=== PATIENT | female | born 1990 | race Caucasian/White ===

== ENCOUNTER 2016-11-26 13:26 | Emergency (ER) | payer OTHER ==
[~2016-11-26] VITALS: Ht 172.7 cm; Wt 70.8 kg
[2016-11-26 13:38] VITALS: BP 114/69
[2016-11-26] MEDS ORDERED: ALPR1TAB2 PO (13:45)
[2016-11-26] MEDS ORDERED: RISP0.251 PO (13:45)
--- NOTE | 2016-11-26 13:59 | NUR ---
PT CAME TO ER DUE TO MED REFILL FOR VICODIN, PT STATES SHE IS HAVING GALL BLADDER SURGERY.PT STATES SHE HAD ABDOMINAL PAIN;HX OF GALLSTONE;AAOX4;NO ACUTE DISTRESS NOTED AT THIS TIME;HOB ELEVATED;NEEDS ATTENDED;SAFETY PRECAUTION INSTITUTED; MADE AWARE OF PT'S CONDITION;
--- NOTE | 2016-11-26 14:00 | NUR ---
ER AT BEDSIDE
--- NOTE | 2016-11-26 14:14 | NUR ---
Patient discharged with v/s stable. Written and verbal after care instructions given and explained. Patient alert, oriented and verbalized understanding of instructions. Ambulatory with steady gait. All questions addressed prior to discharge. ID band removed. Patient advised to follow up with PMD. Rx of NORCO AND ZOFRAN given. Patient educated on indication of medication including possible reaction and side effects. Opportunity to ask questions provided and answered.ADVISED PT TO AVOID GREASY FOODS AND PT AGREED TO IT.
[2016-11-26 14:15] VITALS: BP 104/70
== END 2016-11-26 14:14 | disposition home or self-care (01) ==
LOC: MED 13:26
DX: Z76.0 Encounter for issue of repeat prescription (principal); K80.20 Calculus of gallbladder without cholecystitis without obstruction
CPT/HCPCS: 99283

== ENCOUNTER 2016-12-22 16:26 | Emergency (ER) | payer OTHER ==
[~2016-12-22] VITALS: Ht 177.8 cm; Wt 76.2 kg
[~2016-12-22 16:26] MED LIST: RISPERDAL0.25 MG PO; XANAX1 MG PO
[2016-12-22 16:41] VITALS: BP 118/65
[2017-01-11] MEDS ORDERED: NORCO 5/325 MG1 TAB PO (14:07)
[2017-01-11] MEDS ORDERED: ZOLPIDEM TARTRAT5 M1 PO (14:07)
== END 2016-12-22 19:40 | disposition left against medical advice (07) ==
LOC: MED 16:26
DX: R10.11 Right upper quadrant pain (principal); Z53.21 Procedure and treatment not carried out due to patient leaving prior to being seen by health care provider

== ENCOUNTER 2017-01-10 18:20 | Inpatient (IN) | payer OTHER ==
[~2017-01-10] VITALS: Ht 180.3 cm; Wt 77.1 kg
[~2017-01-10 18:20] MED LIST changes: +ALPR1TAB2 PO; +RISP0.251 PO; -RISPERDAL0.25 MG PO; -XANAX1 MG PO
[2017-01-10 18:37] VITALS: BP 113/73
[2017-01-10 19:53] LABS: BASOPHILS # (AUTO) 0.2 K/uL (0.00-0.22); BASOPHILS % (AUTO) 3.2 % (0.0-2.0); EOSINOPHILS # (AUTO) 0.1 K/uL (0-0.4); EOSINOPHILS % (AUTO) 1.4 % (0.0-4.0); HEMATOCRIT 38.1 % (36-48); HEMOGLOBIN 12.9 g/dL (12.0-16.0); LYMPHOCYTES # (AUTO) 2.5 K/uL (2.5-16.5); LYMPHOCYTES % (AUTO) 47.7 % (20.5-51.1); MEAN CORPUSCULAR HEMOGLOBIN 29 pg (27-31); MEAN CORPUSCULAR HGB CONC 34 g/dL (33-37); MEAN CORPUSCULAR VOLUME 86 fL (80-94); MONOCYTES # (AUTO) 0.5 K/uL (0.8-1.0); NEUTROPHILS % (AUTO) 38.7 % (42.2-75.2); PLATELET COUNT (AUTO) 236 K/uL (140-450); RED BLOOD CELL COUNT(AUTO) 4.43 MIL/uL (4.20-5.40); RED CELL DISTRIBUTION WIDTH 13.4 % (11.6-13.7); WHITE BLOOD COUNT (AUTO) 5.3 K/uL (4.8-10.8)
[2017-01-10 20:01] LABS: ANION GAP 9.4 (8-16); CALCIUM 9.3 mg/dL (8.5-10.1); CARBON DIOXIDE 33.3 mmol/L (21-32); CREATININE 0.8 mg/dL (0.6-1.3); POTASSIUM 4.7 mmol/L (3.5-5.1)
[2017-01-10 20:08] LABS: ALBUMIN 3.1 g/dL (3.4-5.0); TOTAL BILIRUBIN 0.3 mg/dL (0.0-1.0); TOTAL PROTEIN, SERUM 7.6 g/dL (6.4-8.2)
--- NOTE | 2017-01-10 20:38 | NUR ---
PT TAKEN TO BED 8
--- NOTE | 2017-01-10 20:40 | NUR ---
PT PRESENTS TO ER W/C/O ABDOMINAL PAIN X3 DAYS. HX GALLSTONES. SKIN IS PINK/WARM/DRY; AAOX4 WITH EVEN AND STEADY GAIT; PATIENT STATES PAIN OF 2/10 AT THIS TIME; VSS; PATIENT POSITIONED FOR COMFORT; HOB ELEVATED; BEDRAILS UP X2; BED DOWN. ER MD MADE AWARE OF PT STATUS.
--- NOTE | 2017-01-10 21:03 | NUR ---
Dr. Breen evaluating patient at bedside.
--- NOTE | 2017-01-10 21:23 | NUR ---
PT TAKEN TO CT.
[2017-01-10] MEDS ORDERED: ONDANSETRON 4 MG/2 ML VIAL IVP ONE (21:30)
[2017-01-10] MEDS ORDERED: KETOROLAC 30 MG/ML VIAL IVP ONE (21:30)
[2017-01-10 21:45] LABS: APPEARANCE,URINE SL CLOUDY (CLEAR); BILIRUBIN,URINE NEGATIVE (NEGATIVE); BLOOD, URINE NEGATIVE (NEGATIVE); COLOR,URINE YELLOW (YELLOW); LEUKOCYTE ESTERASE ,URINE NEGATIVE (NEGATIVE); NITRITE, URINE NEGATIVE (NEGATIVE); PROTEIN,URINE NEGATIVE (NEGATIVE); UGLUCOSE NEGATIVE (NEGATIVE); UROBILINOGEN,URINE 0.2 EU/dL (0.2 - 1)
[2017-01-10 21:49] LABS: BACTERIA,URINE FEW /HPF (None Seen); RBC,URINE 0-3 /HPF (0-5); SQUAMOUS EPITHELIAL CELL,UR 20-40 /LPF (0-3 (FEW)); WBC,URINE 0-3 /HPF (0-5)
[2017-01-10 21:50] LABS: URINE AMORPHOUS PHOSPHATES 3+ /HPF (None Seen)
[2017-01-10 21:54] LABS: AMPHETAMINE, URINE POS. ng/ml (NEG <=1000); BARBITURATE, URINE NEG. ng/ml (NEG <=200); BENZODIAZEPINE, URINE POS. ng/mL (NEG <=200); CANNABINOID, URINE NEG. ng/mL (NEG <=50); COCAINE, URINE NEG. ng/mL (NEG <=300); OPIATE, URINE POS. ng/mL (NEG <=2000); PHENCYCLIDINE SCREEN,URINE NEG. ng/mL (NEG <=25)
--- NOTE | 2017-01-10 22:15 | NUR ---
Note cecy in ED - 01/10/17 at 2325 by KENRICK Patient will be admitted to care of DR. RODRÍGUEZ. Admited to MED SURG. Will go to room 124B. Belongings list completed. Report CALLED to [facility].
[2017-01-10] MEDS ORDERED: diphenhydrAMINE 50 MG/ML VIAL IVP ONE (22:35)
--- NOTE | 2017-01-10 22:38 | NUR ---
IV 20GA RT FOREARM DONE. IVP PAIN MEDS GIVEN WITH NADR AT THIS TIME.
--- NOTE | 2017-01-10 23:15 | NUR ---
Patient will be admitted to care of DR. RODRÍGUEZ. Admited to MED SURG. Will go to room 124B. Belongings list completed. Report CALLED to [facility].
[2017-01-10 23:30] VITALS: BP 102/54
--- NOTE | 2017-01-10 23:30 | NUR ---
ADMITTED A 26 YEAR OLD FEMALE FROM [facility] W/C, AWAKE,ALERT AND ORIENTED X4 WITH DX. CHOLECYSTITIS. ORIENTED TO SURROUNDINGS, VISITING HOURS, TV, CALL LIGTH WITHIN REACH. INSTRUCTED TO CALL IF NEEDED HELP. ASSISTED TO BR AT THIS TIME.
[2017-01-11] MEDS ORDERED: ONDANSETRON 4 MG/2 ML VIAL IVP PRN (00:05)
[2017-01-11] MEDS: NACL 0.9% 1,000 ML IV SCH ×2 (00:37→14:14)
[2017-01-11] MEDS: diphenhydrAMINE 50 MG CAP PO PRN ×2 (00:46→20:24)
--- NOTE | 2017-01-11 00:46 | NUR ---
REQUESTED FOR SLEEP, EXPLAINED TO PT THAT BENADRYL PO WAS ONLY ORDERED. PT STATES THAT SHE WILL TRY IT. BENADRYL 50 MG PO GIVEN.
[2017-01-11 04:00] VITALS: BP 99/56
--- NOTE | 2017-01-11 04:00 | NUR ---
AWAKEN BIEFLY FOR V/S, NO COMPLAINTS OR DISTRESS.
[2017-01-11 06:07] LABS: HEMATOCRIT 36.2 % (36-48); HEMOGLOBIN 11.7 g/dL (12.0-16.0); MEAN CORPUSCULAR HEMOGLOBIN 29 pg (27-31); MEAN CORPUSCULAR HGB CONC 32 g/dL (33-37); MEAN CORPUSCULAR VOLUME 89 fL (80-94); PLATELET COUNT (AUTO) 229 K/uL (140-450); RED BLOOD CELL COUNT(AUTO) 4.07 MIL/uL (4.20-5.40); RED CELL DISTRIBUTION WIDTH 13.2 % (11.6-13.7); WHITE BLOOD COUNT (AUTO) 5.2 K/uL (4.8-10.8)
--- NOTE | 2017-01-11 06:17 | NUR ---
RESTING QUIETLY, NO COMPLAINTS. REMAINS NPO
[2017-01-11 06:27] LABS: INR 1.1 (0.8-1.2); PROTHROMBIN TIME 10.1 secs (10.8-13.4)
[2017-01-11 06:40] LABS: ANION GAP 9.4 (8-16); CALCIUM 8.6 mg/dL (8.5-10.1); CREATININE 0.9 mg/dL (0.6-1.3); POTASSIUM 4.4 mmol/L (3.5-5.1)
[2017-01-11 07:00] LABS: LYMPHOCYTES % (MANUAL) 65 % (20-46); MONOCYTES % (MANUAL) 6 % (5-12); NEUTROPHILS % (MANUAL) 25 (43-65)
[2017-01-11 07:01] LABS: EOSINOPHILS % (MANUAL) 4 % (0-4); PLATELET ESTIMATE ADEQUATE
--- NOTE | 2017-01-11 07:20 | NUR ---
RECEIVED PT ASLEEP AND LYING ON BED, EASILY AROUSABLE, WITH NO S/S OF RESPIRATORY DISCOMFORT. STATED SHE HAS ABDOMINAL PAIN OF 3/10 TOLERABLE, NO PAIN MED REQUEST. SKIN IS INTACT. DISCUSSED PLAN OF CARE, PT VERBALIZED UNDERSTANDING. CALL LIGHT WITHIN REACH, WILL CONTINUE TO MONITOR.
[2017-01-11 08:00] VITALS: BP 107/55
--- NOTE | 2017-01-11 09:47 | NUR ---
DR RODRÍGUEZ AT BEDSIDE
--- NOTE | 2017-01-11 10:33 | NUR ---
MOTHER AT BEDSIDE, SPOKE TO DR RODRÍGUEZ RE: PT HOME MEDS. PER DR RODRÍGUEZ OK FOR PT TO CONTINUE HOME MEDS ONCE MED RECON IS DONE. WILL AWAIT FOR MOTHER TO BRING HOME MED LIST
--- NOTE | 2017-01-11 10:36 | NUR ---
PATIENT HAS BEEN SCREENED AND CATEGORIZED MODERATE NUTRITION RISK. PATIENT WILL BE SEEN WITHIN 3-5 DAYS OF ADMISSION. 01/13-01/[address]
[2017-01-11] MEDS: MORPHINE SULFATE 2 MG/ML SYR IVP PRN (11:15)
--- NOTE | 2017-01-11 12:41 | NUR ---
PT AWAKE AND EATING LUNCH, WITH MOTHER AT BEDSIDE. MED RECONCILIATION DONE
--- NOTE | 2017-01-11 13:42 | NUR ---
PT AWAKE USING HER PHONE, ALL NEEDS ATTENDED. CALL LIGHT WITHIN REACH, WILL CONTINUE TO MONITOR
[2017-01-11] MEDS ORDERED: ZOLP5TAB7 PO (14:07)
[2017-01-11] MEDS ORDERED: HYDR-4446 PO (14:07)
--- NOTE | 2017-01-11 15:05 | NUR ---
CM NOTE INITIAL REVIEW SENT TO [facility] FAX# [phone] PH# JENIFER [phone]
--- NOTE | 2017-01-11 15:21 | NUR ---
PT AWAKE, NO COMPLAINTS AT THIS TIME. CALL LIGHT WITHIN REACH, WILL CONTINUE TO MONITOR
[2017-01-11 16:00] VITALS: BP 104/45
--- NOTE | 2017-01-11 17:00 | NUR ---
INFORMED CONSENT FOR PROCEDURE AND ANESTHESIA SIGNED, AFFIXED IN CHART FOR MD TO SIGN
--- NOTE | 2017-01-11 19:32 | NUR ---
ENDORSED PT TO MICH MANAGER FLEET IN STABLE CONDITION FOR CONTINUITY OF CARE
--- NOTE | 2017-01-11 19:33 | NUR ---
RECD. AMBULATING FROM BR. A/OX4. RESPIRATION EVEN AND UNLABORED. IV OF NS AT 75 ML/HR INFUSING, RIGHT FOREARM G 20. PLAN OF CARE FOR THE SHIFT DISCUSSED. VERBALIZED UNDERSTANDING. DENIES PAIN 0/10. FAMILY AT THE BEDSIDE.
[2017-01-11 20:00] VITALS: BP 92/59
[2017-01-11] MEDS: risperiDONE 1 MG TAB PO SCH (20:24)
[2017-01-11] MEDS ORDERED: ZOLPIDEM 5 MG TAB PO PRN (22:55)
[2017-01-11] MEDS ORDERED: MAGNESIUM HYDROXIDE 2400 MG/30 ML UDC PO ONE (22:55)
--- NOTE | 2017-01-11 23:20 | NUR ---
STATED UNABLE TO HAVE BM FOR THREE DAYS NOW, MEDICATED WITH MOM ORDERED. UNABLE TO SLEEP, MEDICATED WITH AMBIEN 5 MG. PO ORDERED.
[2017-01-12] VITALS: BP 94/59
[2017-01-12] MEDS: HYDROcodone/APAP 5/325 MG 1 TAB TAB PO PRN ×2 (01:08→16:27)
[2017-01-12] MEDS: NACL 0.9% 1,000 ML IV SCH ×2 (02:45→20:00)
[2017-01-12 06:01] LABS: BASOPHILS # (AUTO) 0.2 K/uL (0.00-0.22); BASOPHILS % (AUTO) 3.4 % (0.0-2.0); EOSINOPHILS # (AUTO) 0.1 K/uL (0-0.4); EOSINOPHILS % (AUTO) 2.3 % (0.0-4.0); HEMATOCRIT 35.6 % (36-48); HEMOGLOBIN 11.6 g/dL (12.0-16.0); LYMPHOCYTES # (AUTO) 2.6 K/uL (2.5-16.5); LYMPHOCYTES % (AUTO) 52.7 % (20.5-51.1); MEAN CORPUSCULAR HEMOGLOBIN 29 pg (27-31); MEAN CORPUSCULAR HGB CONC 33 g/dL (33-37); MEAN CORPUSCULAR VOLUME 88 fL (80-94); MONOCYTES # (AUTO) 0.5 K/uL (0.8-1.0); MONOCYTES % (AUTO) 8.9 % (1.7-9.3); NEUTROPHILS # (AUTO) 1.7 K/uL (1.8-7.7); NEUTROPHILS % (AUTO) 32.7 % (42.2-75.2); PLATELET COUNT (AUTO) 206 K/uL (140-450); RED BLOOD CELL COUNT(AUTO) 4.03 MIL/uL (4.20-5.40); RED CELL DISTRIBUTION WIDTH 13.5 % (11.6-13.7); WHITE BLOOD COUNT (AUTO) 5.1 K/uL (4.8-10.8)
--- NOTE | 2017-01-12 06:30 | NUR ---
ABLE TO SLEPT WELL. CONDITION REMAIN STABLE. WILL ENDORSE TO AM NURSE FOR CONTINUITY OF CARE.
[2017-01-12 06:43] LABS: ANION GAP 7.3 (8-16); CALCIUM 8.5 mg/dL (8.5-10.1); CARBON DIOXIDE 30.8 mmol/L (21-32); CREATININE 0.7 mg/dL (0.6-1.3); POTASSIUM 4.1 mmol/L (3.5-5.1)
[2017-01-12 06:47] LABS: ALBUMIN 2.6 g/dL (3.4-5.0); TOTAL BILIRUBIN 0.3 mg/dL (0.0-1.0); TOTAL PROTEIN, SERUM 6.2 g/dL (6.4-8.2)
[2017-01-12 08:00] VITALS: BP 102/58
--- NOTE | 2017-01-12 08:00 | NUR ---
RECEIVED REPORT FROM MICH HERNÁNDEZ FOR CONTINUITY OF CARE. PATIENT SLEEPING BUT EASILY AWAKE . NO S/S OF RESP DISTRESS NOTED. ABLE TO MAKE NEEDS KNOWN IV SITE RT HAND GAUGE 20 INTACT AND PATENT. IVF INFUSING WELL . PLAN OF CARE DISCUSSED WITH THE PATIENT, AWARE OF GOING TO SURGERY , KEPT PT NPO , VITALS STABLE WILL CONTINUE TO MONITOR.
[2017-01-12] MEDS: risperiDONE 1 MG TAB PO SCH ×3 (09:00→22:08)
[2017-01-12] MEDS ORDERED: ALPRAZolam 0.5 MG TAB PO SCH (09:00)
--- NOTE | 2017-01-12 09:00 | NUR ---
HELD ALL MORNING MEDS BECAUSE OF NPO GOING TO SURGERY , PATIENT AMBULATE AND SELF MORNING CARE DONE.
[2017-01-12] MEDS ORDERED: BUPIVACAINE-MPF/EPI 0.25% 30 ML VIAL INJ ONE (10:18)
[2017-01-12] MEDS ORDERED: SEVOFLURANE 250 ML BTL INH ONE (10:25)
[2017-01-12] MEDS ORDERED: PROPOFOL 200 MG/20 ML VIAL IV ONE (10:25)
[2017-01-12] MEDS ORDERED: ROCURONIUM 50 MG/5 ML VIAL IV ONE (10:25)
[2017-01-12] MEDS ORDERED: SUCCINYLCHOLINE CHLORIDE 200 MG/10 ML VIAL IVP ONE (10:25)
[2017-01-12] MEDS ORDERED: DEXAMETHASONE 4 MG/ML VIAL ONE (10:25)
[2017-01-12] MEDS ORDERED: ONDANSETRON 4 MG/2 ML VIAL ONE (10:25)
--- NOTE | 2017-01-12 10:30 | NUR ---
PATIENT LEFT TO OR ACCOMPANY BY OR NURSE STABLE CONDITION.
[2017-01-12] MEDS ORDERED: ceFAZolin 1,000 MG VIAL ONE (10:32)
[2017-01-12] MEDS ORDERED: MIDAZOLAM 2 MG/2 ML VIAL ONE (10:36)
[2017-01-12] MEDS ORDERED: fentaNYL 0.05 MG/ML VIAL ONE (10:37)
[2017-01-12] MEDS ORDERED: MEPERIDINE 50 MG/ML SYR ONE (10:37)
[2017-01-12] MEDS: LACTATED RINGERS 1,000 ML IV SCH ×2 (10:53→22:08)
[2017-01-12] MEDS ORDERED: HYDROmorphone 1 MG/ML AMP IVP PRN (10:55)
[2017-01-12] MEDS ORDERED: ONDANSETRON 4 MG/2 ML VIAL IVP PRN (10:55)
[2017-01-12] MEDS ORDERED: diphenhydrAMINE 50 MG/ML VIAL IVP PRN (10:55)
[2017-01-12] MEDS ORDERED: MEPERIDINE 25 MG/ML SYR IVP PRN (10:55)
[2017-01-12] MEDS: HYDROmorphone PFS 2 MG/ML SYR ONE ×4 (12:06→12:36)
--- NOTE | 2017-01-12 12:32 | NUR ---
CM NOTE CONCURRENT REVIEW SENT TO [facility] FAX# [phone] PH# JENIFER [phone]
[2017-01-12 13:00] VITALS: BP 99/64
--- NOTE | 2017-01-12 13:00 | NUR ---
PATIENT BACK TO THE ROOM FROM OR DROWSY BUT EASILY AWAKE , INCISION ON ABDOMEN 5 BANDAGES CLEAN AND DRY VITALS STABLE .
[2017-01-12 13:30] VITALS: BP 102/65
--- NOTE | 2017-01-12 15:00 | NUR ---
ATE CLEAR LIQUID DIET TOLERATED WELL ENCOURAGE PATIENT TO AMBULATE STATED WILL TRY LATER.
--- NOTE | 2017-01-12 16:30 | NUR ---
C/O PAIN MEDICATED WITH NORCO ONE TAB AT THIS TIME.
[2017-01-12] MEDS: MORPHINE SULFATE 2 MG/ML SYR IVP PRN (18:34)
--- NOTE | 2017-01-12 19:35 | NUR ---
RECEIVED REPORT FROM DAY RN FOR CONTINUITY OF CARE. PATIENT IS A&OX4, DISCUSSED PLAN OF CARE WITH PATIENT, VERBALIZED UNDERSTANDING. SHIFT ASSESSMENT DONE. NO IV ACCESS NOTED. PATIENT COLLECTED BELONGINGS FROM ROOM AND IS AWAITING RIDE HOME. SAFETY MEASURES ENFORCED. WILL CONTINUE TO MONITOR.
--- NOTE | 2017-01-12 19:55 | NUR ---
REMOVED WRISTBANDS. PATIENT ESCORTED TO CAR VIA WHEELCHAIR. LEFT UNIT IN STABLE CONDITION.
== END 2017-01-12 19:55 | disposition home or self-care (01) | DRG 263 ==
LOC: MED 18:20 → MTU 22:57
PROVIDERS: ADMIT Hospitalist; ATTEND Hospitalist
PROC: 0FT44ZZ Resection of Gallbladder, Percutaneous Endoscopic Approach (ICD-10-PCS; principal; 2017-01-12 10:30)
DX: K80.10 Calculus of gallbladder with chronic cholecystitis without obstruction (principal); R56.9 Unspecified convulsions; F17.210 Nicotine dependence, cigarettes, uncomplicated; F31.9 Bipolar disorder, unspecified; N28.9 Disorder of kidney and ureter, unspecified; K82.8 Other specified diseases of gallbladder; F15.10 Other stimulant abuse, uncomplicated
CPT/HCPCS: 36415; 76705; 80048; 80053; 80305; 81001; 83690; 84484; 85025; 85610; 86886; 86900; 86901; 87081; 93005; 96374; 96375; 99285; J0330; J0690; J1100; J1170; J1200; J1885; J2175; J2250; J2270; J2405; J2704; J3010; J3490; J7030; Q0092; Q0163

== ENCOUNTER 2017-03-03 00:55 | Emergency (ER) | payer OTHER ==
[~2017-03-03] VITALS: Ht 177.8 cm; Wt 74.8 kg
[~2017-03-03 00:55] MED LIST changes: +HYDR-4446 PO; +ZOLP5TAB7 PO
[2017-03-03 01:07] VITALS: BP 128/72
--- NOTE | 2017-03-03 03:14 | NUR ---
PT TAKEN TO BED 6
--- NOTE | 2017-03-03 03:17 | NUR ---
26 Y/O F W/C/O LOW ABD PAIN AND PAIN , BLOOD AND MUCUS WITH URINATION. PT ALSO REQUESTING RX REFILL FOR ACYCLOVIR. MED HX, HERPES, AND GALLBLADDER REMOVED X 2 MTHS AGO. NO S/S OF DSITRESS NOTED AT THE MOMENT. ER MADE AWARE.
--- NOTE | 2017-03-03 03:40 | NUR ---
PT RESTING IN BED, NO S/S OF DSITRESS NOTED AT THE MOMENT.
--- NOTE | 2017-03-03 04:56 | NUR ---
Dr. Breen evaluating patient at bedside.
[2017-03-03] MEDS ORDERED: KETOROLAC 60 MG/2 ML VIAL IM ONE (05:05)
[2017-03-03 05:25] VITALS: BP 111/69
--- NOTE | 2017-03-03 05:25 | NUR ---
Patient discharged with v/s stable. Written and verbal after care instructions given and explained. Patient alert, oriented and verbalized understanding of instructions. Ambulatory with steady gait. All questions addressed prior to discharge. ID band removed. Patient advised to follow up with PMD OR RETURN TO ER IF CONDITION WORSENS. Rx of ACYCLOVIR, AND CIPRO given. Patient educated on indication of medication including possible reaction and side effects. Opportunity to ask questions provided and answered.
== END 2017-03-03 05:25 | disposition home or self-care (01) ==
LOC: MED 00:55
DX: N39.0 Urinary tract infection, site not specified (principal); Z90.49 Acquired absence of other specified parts of digestive tract
CPT/HCPCS: 81002; 81025; 96372; 99283; J1885

== ENCOUNTER 2017-06-20 12:40 | Emergency (ER) | payer OTHER ==
[~2017-06-20] VITALS: Ht 180.3 cm; Wt 79.4 kg
[~2017-06-20 12:40] MED LIST changes: +ACET-8386 PO; -HYDR-4446 PO
[2017-06-20 13:18] VITALS: BP 143/77
--- NOTE | 2017-06-20 13:20 | NUR ---
Patient ambulated to bed 04.
--- NOTE | 2017-06-20 13:22 | NUR ---
26F BIB FRIEND C/O LEFT UPPER QUADRANT PAIN, ACHING, RADIATES TO RT FLANK, 01/18 X 5 MONTHS; PT C/O NAUSEA, BUT STATES NO VOMITING OR DIARRHEA AT THIS TIME; ABDOMEN SOFT, NON-TENDER, ACTIVE BOWEL SOUNDS X 4 QUADRANTS; PT C/O HEMATURIA AND URINARY BURNING X THIS MORNING; PT AA&OX4, PERRLA, BL LUNG SOUNDS CLEAR, RR EVEN/UNLABORED, SKIN IS WARM/DRY/INTACT AT THIS TIME; STEADY GAIT; PT RESTING IN BED WITH HOB ELEVATED AND IN LOWEST POSITION; POSITIONED FOR COMFORT; ER MD MADE AWARE OF STATUS. WILL CONTINUE TO MONITOR.
--- NOTE | 2017-06-20 13:58 | NUR ---
ER MD DR. PATEL EVALUATING PT AT BEDSIDE.
[2017-06-20] MEDS ORDERED: NACL 0.9% 500 ML IV ONE (14:05)
[2017-06-20] MEDS ORDERED: ONDANSETRON 4 MG/2 ML VIAL IVP ONE (14:05)
[2017-06-20] MEDS ORDERED: KETOROLAC 30 MG/ML VIAL IVP ONE (14:05)
--- NOTE | 2017-06-20 14:18 | NUR ---
US AT BEDSIDE.
--- NOTE | 2017-06-20 14:48 | NUR ---
Pt taken to XRAY via wheelchair per tech.
[2017-06-20 14:55] LABS: BASOPHILS # (AUTO) 0.4 K/uL (0.00-0.22); EOSINOPHILS # (AUTO) 0.1 K/uL (0-0.4); HEMATOCRIT 36.3 % (36-48); HEMOGLOBIN 11.7 g/dL (12.0-16.0); LYMPHOCYTES # (AUTO) 1.9 K/uL (2.5-16.5); MEAN CORPUSCULAR HEMOGLOBIN 28 pg (27-31); MEAN CORPUSCULAR HGB CONC 32 g/dL (33-37); MEAN CORPUSCULAR VOLUME 87 fL (80-94); MONOCYTES # (AUTO) 0.3 K/uL (0.8-1.0); NEUTROPHILS # (AUTO) 1.3 K/uL (1.8-7.7); PLATELET COUNT (AUTO) 222 K/uL (140-450); RED BLOOD CELL COUNT(AUTO) 4.16 MIL/uL (4.20-5.40); RED CELL DISTRIBUTION WIDTH 13.5 % (11.6-13.7)
[2017-06-20 15:05] LABS: ANION GAP 9.2 (8-16); CARBON DIOXIDE 31.2 mmol/L (21-32); CREATININE 0.8 mg/dL (0.6-1.3); POTASSIUM 4.4 mmol/L (3.5-5.1)
[2017-06-20 15:11] LABS: TOTAL BILIRUBIN 0.3 mg/dL (0.0-1.0)
--- NOTE | 2017-06-20 15:30 | NUR ---
PT STATES HAS RT UPPER CHEST PAIN; ER MD DR. PATEL NOTIFIED.
--- NOTE | 2017-06-20 15:30 | NUR ---
IV removed, catheter intact and site benign. Applied folded 4x4 gauze and tape to stop bleeding. Pt tolerated procedure well.
--- NOTE | 2017-06-20 15:39 | NUR ---
ECG SHOWS NORMAL SINUS RHYTHM AT THIS TIME; RR EVEN/UNLABORED; OK TO DISCHARGE PT PER ER MD DR. PATEL. PT ADVISED TO FOLLOW UP WITH PRIMARY CARE PHYSICIAN.
[2017-06-20 15:55] VITALS: BP 114/74
--- NOTE | 2017-06-20 15:55 | NUR ---
Patient discharged with v/s stable. Written and verbal after care instructions given and explained. Patient alert, oriented and verbalized understanding of instructions. Carried with steady gait. All questions addressed prior to discharge. ID band removed. Patient advised to follow up with PMD. Rx of MOTRIN, LACTULOSE, RISPERDAL AND DIFLUCAN given. Patient educated on indication of medication including possible reaction and side effects. Opportunity to ask questions provided and answered.
== END 2017-06-20 15:55 | disposition home or self-care (01) ==
LOC: MED 12:40
DX: K59.00 Constipation, unspecified (principal); R03.0 Elevated blood-pressure reading, without diagnosis of hypertension; Z90.89 Acquired absence of other organs
CPT/HCPCS: 36415; 74000; 76705; 80053; 83690; 85025; 93005; 96374; 96375; 99285; J1885; J2405; J7030; Q0092; 81002; 81025

== ENCOUNTER 2017-07-21 22:40 | Emergency (ER) | payer OTHER ==
[~2017-07-21] VITALS: Ht 180.3 cm; Wt 77.1 kg
[2017-07-21 22:45] VITALS: BP 116/91
--- NOTE | 2017-07-21 22:55 | NUR ---
PT TAKEN TO BED 12.
--- NOTE | 2017-07-21 23:00 | NUR ---
26Y F BIB FAMILY C/O VOMITING WORMS X 3 YEARS. PT DENIES LEAVING THE COUNTRY AT ANY TIME DURING THOSE 3 YEARS. PT ALSO C/O N/V/D. PT STATES SHE HAS IBS AND JUST RECOVERED FROM [facility] X 1 MONTH AGO. PT AAOX4. BREATHING IS UNLABORED AND CLEAR. PT AMBULATED TO ER BED WIST STEADY GAIT
--- NOTE | 2017-07-21 23:18 | NUR ---
Patient being evaluated by Dr. Perez at bedside.
--- NOTE | 2017-07-22 00:09 | NUR ---
Patient discharged with v/s stable. Written and verbal after care instructions given and explained. Patient alert, oriented and verbalized understanding of instructions. Ambulatory with steady gait. All questions addressed prior to discharge. ID band removed. Patient advised to follow up with PMD. Rx of ZOFRAN ODT 4MG given. Patient educated on indication of medication including possible reaction and side effects. Opportunity to ask questions provided and answered.
[2017-07-22 00:11] VITALS: BP 116/91
== END 2017-07-22 00:09 | disposition home or self-care (01) ==
LOC: MED 22:40
DX: R11.2 Nausea with vomiting, unspecified (principal); Z90.49 Acquired absence of other specified parts of digestive tract; Z79.899 Other long term (current) drug therapy
CPT/HCPCS: 81025; 99283

== ENCOUNTER 2018-01-08 20:47 | Emergency (ER) | payer MEDICAID, OTHER ==
[~2018-01-08] VITALS: Ht 172.7 cm; Wt 77.1 kg
[2018-01-08 21:00] VITALS: BP 104/76
--- NOTE | 2018-01-08 21:00 | NUR ---
WHILE PT IS IN TRIAGE ROOM WITH NURSE. PT STATES MRSA INFECTION AND NEEDS PACKING REMOVED AND WOUND CHECKED BY PHYSICIAN. AFEBRILE. NO DRAINAGE NTOED TO WOUND SITE ON LEFT SHOULDER. PACKING SPONTANEOUSLY REMOVED. PT STATES WISHING TO LEAVE WITHOUT BEING SEEN. PT ASKED TO STAND BY. DR. MCKEON NOTIFIED. PT VSS.
--- NOTE | 2018-01-08 21:05 | NUR ---
PT EVALUATED BY DR MCKEON AT CHAIRSIDE IN TRIAGE ROOM.
[2018-01-08 21:10] VITALS: BP 104/76
--- NOTE | 2018-01-08 21:10 | NUR ---
Patient discharged with v/s stable. Written and verbal after care instructions given and explained. Patient verbalized understanding. Ambulatory with steady gait. All questions addressed prior to discharge. Advised to follow up with PMD.
== END 2018-01-08 21:10 | disposition home or self-care (01) ==
LOC: MED 20:47
DX: Z48.01 Encounter for change or removal of surgical wound dressing (principal); L03.114 Cellulitis of left upper limb; G40.909 Epilepsy, unspecified, not intractable, without status epilepticus; Z90.49 Acquired absence of other specified parts of digestive tract
CPT/HCPCS: 99281; 99282

== ENCOUNTER 2019-01-29 16:21 | Emergency (ER) | payer BC ==
[~2019-01-29] VITALS: Ht 177.8 cm; Wt 79.4 kg
[2019-01-29 16:42] VITALS: BP 130/101
--- NOTE | 2019-01-29 16:47 | NUR ---
PT TO LOBBY WITH STEADY GAIT.
--- NOTE | 2019-01-29 17:17 | NUR ---
PT REFUSING BLOOD DRAW
--- NOTE | 2019-01-29 17:22 | NUR ---
CARIN GRANT NOTIFIED
--- NOTE | 2019-01-29 17:25 | NUR ---
PT STATED SHE WOULD TAKE WATER, WANTS TO WAIT A "WHILE FOR BLOOD DRAW". PT WILL WAIT IN ER [facility] AND WILL LET US KNOW WHEN SHE IS OKAY FOR BLOOD DRAW----CARIN GRANT SPOKE WITH PT. AMBULATORY WITH STEADY GAIT TO [facility] WITH 2 CUPS FILLED WITH H2O
[2019-01-29 17:31] LABS: APPEARANCE,URINE SL CLOUDY (CLEAR); BILIRUBIN,URINE 1+ (NEGATIVE); BLOOD, URINE NEGATIVE (NEGATIVE); COLOR,URINE ORANGE (YELLOW); LEUKOCYTE ESTERASE ,URINE 1+ (NEGATIVE); NITRITE, URINE POSITIVE (NEGATIVE); UGLUCOSE NEGATIVE (NEGATIVE)
[2019-01-29 17:35] LABS: RBC,URINE 0-5 /HPF (0-5); WBC,URINE 20-60 /HPF (0-5)
[2019-01-29 17:37] LABS: BARBITURATE, URINE NEG. ng/ml (NEG <=200); BENZODIAZEPINE, URINE NEG. ng/mL (NEG <=200); CANNABINOID, URINE NEG. ng/mL (NEG <=50); COCAINE, URINE NEG. ng/mL (NEG <=300); OPIATE, URINE POS. ng/mL (NEG <=2000); PHENCYCLIDINE SCREEN,URINE NEG. ng/mL (NEG <=25)
--- NOTE | 2019-01-29 18:09 | NUR ---
PT BACK IN CHAIR ---LAB NOTIFIED FOR DRAW
--- NOTE | 2019-01-29 18:14 | NUR ---
PT SEEN WALKING BACK OUT ---LEFT FEDERICO HERNANDEZ
--- NOTE | 2019-01-29 18:24 | NUR ---
PT BRIEFLY WALKED BACK IN TO [facility] BUT WENT BACK OUT. I SPOKE TO HER OUTSIDE STATED SHE NEEDS ANXIETY MEDICATION TO BE ABLE TO WALK BACK IN AND BE SEEN. PT WAS REMINDED SHE NEEDS TO BE INSIDE FOR THE [facility] TO SEE HER. NO OTHER MED ORDERS AT THIS TIME BUT LAB ONLY. PT STATING SHE CANT SEE HER THERAPIST BECAUSE SHE JUST MOVED TO THE AREA AND HAS BEEN TAKING ANXIETY MEDICATIONS FOR 15YRS STATED SHE IS NOT WAITING TO BE SEEN---CARIN GRANT NOTIFIED
== END 2019-01-29 18:14 | disposition left against medical advice (07) ==
LOC: MED 16:21
DX: N39.0 Urinary tract infection, site not specified (principal); Z79.899 Other long term (current) drug therapy
CPT/HCPCS: 80305; 81001; 87086; 87186; 99283

== ENCOUNTER 2019-06-09 19:33 | Emergency (ER) | payer BC ==
[2019-06-09 19:50] VITALS: BP 127/66
== END 2019-06-09 19:50 | disposition left against medical advice (07) ==
LOC: MED 19:33
DX: R10.9 Unspecified abdominal pain (principal); Z53.21 Procedure and treatment not carried out due to patient leaving prior to being seen by health care provider